=== PATIENT | female | born 1985 | race Two or more races ===

== ENCOUNTER → 2018-06-06 | Outpatient (CLI) | payer BC ==
[2018-06-07 10:54] LABS: ALANINE AMINOTRANSFERASE 269 U/L (9-52); ALBUMIN 3.9 g/dL (3.5-5.0); ALKALINE PHOSPHATASE 75 U/L (38-126); ANION GAP 7 (5-19); ASPARTATE AMINO TRANSFERASE 90 U/L (14-36); BILIRUBIN,DIRECT 0.2 mg/dL (0.0-0.4); BILIRUBIN,TOTAL 0.4 mg/dL (0.2-1.3); BLOOD UREA NITROGEN 9 mg/dL (7-20); CARBON DIOXIDE 25 mmol/L (22-30); CHLORIDE 106 mmol/L (98-107); CHOLESTEROL 172.37 mg/dL (0-200); GLUCOSE 90 mg/dL (75-110); POTASSIUM 4.6 mmol/L (3.6-5.0); SODIUM 137.8 mmol/L (137-145); TOTAL PROTEIN 7.3 g/dL (6.3-8.2); TRIGLYCERIDES 142 mg/dL (<150)
[2018-06-07 11:09] LABS: DIRECT LDL 104 mg/dL (<100)
[2018-06-07 11:31] LABS: MUMPS IGG AB 74.4 AU/mL (Immune >10); RUBELLA IGG AB 3.55 index (Immune >0.); RUBEOLA IGG AB <25.0 AU/mL (Immune >29); VARICELLA ZOSTER IGG AB 710 index (Immune >16)
== END ==
LOC: OD 12:45
PROVIDERS: ATTEND Family Medicine
DX: E06.9 Thyroiditis, unspecified (principal); E66.9 Obesity, unspecified; Z02.1 Encounter for pre-employment examination
CPT/HCPCS: 36415; 80053; 80061; 83036; 84443; 86735; 86762; 86765; 86787

== ENCOUNTER → 2018-10-06 | Outpatient (CLI) | payer BC | LOC: OD 16:30 | PROVIDERS: ATTEND Family Medicine | DX: E06.9 Thyroiditis, unspecified (principal) | CPT/HCPCS: 36415; 84443 ==